=== PATIENT | female | born 1955 | race Caucasian/White ===

== ENCOUNTER 2021-11-01 07:12 | Day surgery (SDC) | payer MEDICARE, OTHER ==
[~2021-11-01 07:12] MED LIST: Lactated Ringers 1,000 ML IV SCH; Sodium Chloride 0.9% 10 ML Syringe FLUSH PRN
[2021-11-01] MEDS ORDERED: Propofol 200 MG/20 ML SDV ONE (08:08)
[2021-11-01] MEDS ORDERED: fentaNYL 100 MCG/2 ML SDV ONE (08:08)
== END 2021-11-01 10:40 | disposition home or self-care (01) ==
LOC: VM.SDS 07:12
PROVIDERS: ATTEND Family Medicine
DX: D12.0 Benign neoplasm of cecum (principal); D12.3 Benign neoplasm of transverse colon; K57.30 Diverticulosis of large intestine without perforation or abscess without bleeding; E03.9 Hypothyroidism, unspecified; F32.A Depression, unspecified; G43.909 Migraine, unspecified, not intractable, without status migrainosus; Z98.890 Other specified postprocedural states; Z79.890 Hormone replacement therapy; E78.00 Pure hypercholesterolemia, unspecified; Z79.82 Long term (current) use of aspirin; Z79.899 Other long term (current) drug therapy; Z88.8 Allergy status to other drugs, medicaments and biological substances
CPT/HCPCS: 00811; 88305; J2704; J3010; J7120

== ENCOUNTER 2025-02-10 10:15 | Day surgery (SDC) | payer MEDICARE, OTHER ==
[2025-02-10] MEDS: Lactated Ringers 1,000 ML IV SCH (10:33)
[2025-02-10] MEDS ORDERED: fentaNYL 100 MCG/2 ML SDV ONE (11:25)
[2025-02-10] MEDS ORDERED: Propofol 200 MG/20 ML SDV ONE ×2 (11:25→13:20)
== END 2025-02-10 14:24 | disposition home or self-care (01) ==
LOC: VM.SDS 10:15
PROVIDERS: ATTEND Family Medicine
DX: Z12.11 Encounter for screening for malignant neoplasm of colon (principal); D12.6 Benign neoplasm of colon, unspecified; K63.5 Polyp of colon; Z86.0100 Personal history of colon polyps, unspecified; K57.30 Diverticulosis of large intestine without perforation or abscess without bleeding; I10 Essential (primary) hypertension; Z79.899 Other long term (current) drug therapy
CPT/HCPCS: 00811; 88305; J2704; J3010; J7120